=== PATIENT | male | born 1950 | race Caucasian/White ===

== ENCOUNTER 2018-03-16 09:20 | Emergency (ER) | payer MEDICARE, OTHER ==
[2018-03-16 09:31] VITALS: BP 138/48
[2018-03-16] MEDS ORDERED: ERYTHROMYCIN OPHTH OINT 1 GM TUBE RIGHTEYE STA (10:57)
--- NOTE | 2018-03-16 10:59 | ED Physician Documentation ---
History of Present Illness - Stated complaint Stated Complaint: LUMP IN CORNER RT EYE - Chief complaint Chief Complaint: Heent - Additonal information Additional information: hx from pt 67 male painful lump medial corner R eye for a motnh or so [facility] duct and rec warm compresses which helped at first not now he was at the hospital with his anyway so he thought he would get another opinion no fever no dc Review of Systems Eyes: reports: Irritation. denies: Discharge PD PAST MEDICAL HISTORY - Past Medical History Past Medical History: Yes Cardiovascular: Hypertension Endocrine/Autoimmune: Type 2 diabetes Musculoskeletal: Other Other Past Medical History: restless leg syndrome - Past Surgical History Past Surgical History: No - Present Medications Home Medications: Ambulatory Orders Medication Instructions Recorded Confirmed Carbidopa/Levodopa 1 each PO 03/16/18 [Carbidopa-Levodopa 10-100 Tab] Glipizide [Glipizide Xl] 10 mg PO 03/16/18 Lisinopril/Hydrochlorothiazide 1 each PO 03/16/18 [Lisinopril-Hctz 10-12.5 mg Tab] Meloxicam 15 mg PO 03/16/18 03/16/18 Metoprolol Succinate [Toprol Xl] 50 mg PO 03/16/18 Polymyxin B/Trimeth Ophth Drop 1 drops OPTH Q6H 7 Days #1 bottle 03/16/18 [Polytrim Ophth Drops] metFORMIN [Glucophage] 500 mg PO ONCE 03/16/18 03/16/18 - Allergies Allergies/Adverse Reactions: Allergies Allergy/AdvReac Type Severity Reaction Status Date / Time erythromycin base Allergy Rash Verified 03/16/18 09:31 - Social History Does the pt smoke?: No Smoking Status: Never smoker PD ED PE NORMAL - Vitals Vital signs reviewed: Yes - HEENT HEENT: PERRL, EOMI, Other (small firm approx 2 mm swelling medial to R eye, no dc no injection no erythema) Results - Vitals Vitals: Vital Signs - 24 hr 03/16/18 09:28 Temperature 36.0 C L Heart Rate 68 Respiratory 16 Rate Blood Pressure 138/48 H O2 Saturation 96 Oxygen O2 Source Room air PD MEDICAL DECISION MAKING - ED course ED course: seems Departure - Departure Disposition: 01 Home, Self Care Clinical Impression: Blocked tear duct Condition: Good Instructions: ED Blocked Duct Tear Prescriptions: Polymyxin B/Trimeth Ophth Drop [Polytrim Ophth Drops] 1 drops OPTH Q6H 7 Days #1 bottle Comments: If not better in a week follow up with your eye doctor
== END 2018-03-16 11:08 | disposition home or self-care (01) ==
LOC: ED 09:20
DX: H04.001 Unspecified dacryoadenitis, right lacrimal gland (principal); I10 Essential (primary) hypertension; E11.9 Type 2 diabetes mellitus without complications
CPT/HCPCS: 99283

== ENCOUNTER 2021-04-04 13:25 | Emergency (ER) | payer MEDICARE, OTHER ==
[2021-04-04 13:43] VITALS: BP 89/49
[2021-04-04] MEDS ORDERED: MELOXICAM 7.5 MG TABLET PO STA (14:08)
--- NOTE | 2021-04-04 14:18 | ED Physician Documentation ---
PD HPI LOWER EXT INJURY - Stated complaint Stated Complaint: LT ANKLE PX - Chief complaint Chief Complaint: Ext Problem - History obtained from History obtained from: Patient - History of Present Illness PD HPI LOW EXT INJURY LOCATION: Left, Ankle Type of injury: Twist Where injury occurred: Work Timing - onset: How many weeks ago (1) Timing - duration: Weeks (1) Pain level max: 7 Pain level now: 5 Improved by: Rest, Ice Worsened by: Moving, Palpating Associated symptoms: Swelling. No: Weakness, Numbness, Tingling Contributing factors: No: Anticoagulated - Additional information Additional information: 70-year-old male states that he twisted his left foot and ankle at work about 1 week ago. Is having continued pain, swelling and bruising. Worse with walking, better with rest. He states that he was seen [facility] few days ago but does not have the results back of the x-rays. He states that he called the nurse advice line and was told to come here for evaluation. Review of Systems Constitutional: denies: Fever Throat: denies: Sore throat Cardiac: denies: Chest pain / pressure Respiratory: denies: Cough GI: denies: Vomiting, Diarrhea Skin: denies: Rash Musculoskeletal: denies: Neck pain, Back pain Neurologic: denies: Headache PD PAST MEDICAL HISTORY - Past Medical History Past Medical History: Yes Cardiovascular: Hypertension Endocrine/Autoimmune: Type 2 diabetes Musculoskeletal: Other - Past Surgical History Past Surgical History: No - Present Medications Home Medications: Ambulatory Orders Medication Instructions Recorded Confirmed Carbidopa/Levodopa 1 each PO 03/16/18 [Carbidopa-Levodopa 10-100 Tab] Glipizide [Glipizide Xl] 10 mg PO 03/16/18 Lisinopril/Hydrochlorothiazide 1 each PO 03/16/18 [Lisinopril-Hctz 10-12.5 mg Tab] Meloxicam 15 mg PO 03/16/18 03/16/18 Metoprolol Succinate [Toprol Xl] 50 mg PO 03/16/18 Polymyxin B/Trimeth Ophth Drop 1 drops OPTH Q6H 7 Days #1 bottle 03/16/18 [Polytrim Ophth Drops] metFORMIN [Glucophage] 500 mg PO ONCE 03/16/18 03/16/18 - Allergies Allergies/Adverse Reactions: Allergies Allergy/AdvReac Type Severity Reaction Status Date / Time erythromycin base Allergy Rash Verified 04/04/21 13:42 - Social History Does the pt smoke?: No Smoking Status: Never smoker PD ED PE NORMAL - Vitals Vital signs reviewed: Yes - General General: Alert and oriented X 3, No acute distress - HEENT HEENT: Moist mucous membranes - Neck Neck: Supple, no meningeal sign - Cardiac Cardiac: RRR - Respiratory Respiratory: No respiratory distress, Clear bilaterally - Derm Derm: Warm and dry - Extremities Extremities: Other (L ankle - mild ecchymosis to the medial aspect of the foot, under the medial malleolus. NVI. Otherwise normal examination of the foot and ankle. Achilles tendon intact.) - Neuro Neuro: Alert and oriented X 3 - Psych Psych: Normal mood, Normal affect Results - Vitals Vitals: Vital Signs - 24 hr 04/04/21 13:36 Temperature 36.6 C Heart Rate 87 Respiratory 16 Rate Blood Pressure 89/49 L O2 Saturation 96 Oxygen O2 Source Room air - Rads (name of study) L ankle xray Radiology: Final report received, EMP read contemporaneously, See rad report L foot xray Radiology: Final report received, EMP read contemporaneously, See rad report PD MEDICAL DECISION MAKING - ED course Complexity details: reviewed results, considered differential, d/w patient ED course: 70-year-old male with what appears to be a left ankle sprain. No acute findings on x-ray. Patient does state that his blood pressure runs low. Patient is well-appearing, nontoxic. We we'll place in a air splint for comfort. He has his own crutches. He states he has meloxicam at home and will start to take this. Patient counseled regarding signs and symptoms for which I believe and urgent re-evaluation would be necessary. Patient with good understanding of and agreement to plan and is comfortable going home at this time This document was made in part using voice recognition software. While efforts are made to proofread this document, sound alike and grammatical errors may occur. Departure - Departure Disposition: 01 Home, Self Care Clinical Impression: Left ankle sprain Qualifiers: Encounter type: initial encounter Involved ligament of ankle: unspecified ligament Qualified Code(s): S93.402A - Sprain of unspecified ligament of left ankle, initial encounter Condition: Good Instructions: ED Sprain Ankle Follow-Up: ADITI FRANKS ARNP [Primary Care Provider] - [facility] [Provider Group] Comments: I would continue the meloxicam and Tylenol at home. You can follow-up with your doctor and/or orthopedics within 1 week for repeat evaluation. You may bear weight as tolerated. The brace should help to stabilize the ankle as well. Return if you worsen. Your x-rays did not show any acute abnormalities today.
--- NOTE | 2021-04-04 14:48 | XRAY Report ---
PROCEDURE: Foot 3 View LT INDICATIONS: fall 1 week ago, foot/ankle pain TECHNIQUE: 3 views of the foot were acquired. COMPARISON: Correlation is made with the accompanying ankle plain films. FINDINGS: Bones: No fractures or dislocations. No suspicious bony lesions. Age-appropriate degenerative may ges are seen. Toe alignment abnormalities can be seen. A relatively prominent Achilles tendon inser tion enthesophyte can be seen along the posterior aspect of the calcaneus. Soft tissues: No significant soft tissue abnormality is seen. IMPRESSION: No displaced fractures are seen. Toe alignment abnormalities and degenerative changes can be seen. Reviewed by: Boaz Blanchard MD on 04/04/2021 1:46 PM [facility] Approved by: Boaz Blanchard MD on 04/04/2021 1:46 PM [facility] Station ID: [id number]
--- NOTE | 2021-04-04 14:48 | XRAY Report ---
PROCEDURE: Ankle 3 View LT INDICATIONS: fall 1 week ago, foot/ankle pain TECHNIQUE: 3 views of the ankle were acquired. COMPARISON: Correlation is made with the accompanying foot plain films, 04/04/2021 FINDINGS: Bones: No fractures or dislocations. Ankle mortise is normally aligned. No suspicious bony lesions . The talar dome demonstrates an unremarkable appearance. A relatively prominent Achilles insertio n enthesophyte can be seen. Toe alignment abnormalities are seen. Soft tissues: No significant soft tissue plain film abnormality is seen. IMPRESSION: No acute plain film abnormality can be seen. Reviewed by: Boaz Blanchard MD on 04/04/2021 1:47 PM [facility] Approved by: Boaz Blanchard MD on 04/04/2021 1:47 PM [facility] Station ID: [id number]
== END 2021-04-04 15:26 | disposition home or self-care (01) ==
LOC: ED 13:25
DX: S93.402A Sprain of unspecified ligament of left ankle, initial encounter (principal); X50.1XXA Overexertion from prolonged static or awkward postures, initial encounter; Y99.0 Civilian activity done for income or pay; I10 Essential (primary) hypertension; E11.9 Type 2 diabetes mellitus without complications; Z79.84 Long term (current) use of oral hypoglycemic drugs
CPT/HCPCS: 73610; 73630; 99282; 99283; A9270

== ENCOUNTER 2021-04-06 08:35 | Outpatient (CLI) | payer MEDICARE, OTHER ==
--- NOTE | 2021-04-06 12:51 | XRAY Report ---
PROCEDURE: Ankle 3 View LT INDICATIONS: LEFT ANKLE PX TECHNIQUE: 3 views of the ankle were acquired. COMPARISON: 04/04/2021 FINDINGS: Bones: No acute fractures or dislocations. No reactive changes of subacute fracture healing. Stable chronic appearing ossification over the medial margin of the distal fibula. Prominent retrocalcaneal enthesophyte, unchanged. Ankle mortise is normally aligned. No suspicious bony lesions. Soft tissues: No tibiotalar joint effusion. Achilles tendon appears normal. IMPRESSION: Stable radiographic evaluation of the left ankle. No evidence for acute or subacute frac tures. Normal alignment. If there is continued clinical concern for pathology or occult fracture, consider follow-up imaging w ith repeat radiographs in 10-14 days and possible advanced imaging (CT, MRI, bone scan) if symptoms p ersist. Reviewed by: Roshan Simmons MD on 04/06/2021 12:50 PM PST Approved by: Roshan Simmons MD on 04/06/2021 12:50 PM PST Station ID: [id number]
--- NOTE | 2021-04-06 13:16 | XRAY Report ---
PROCEDURE: Foot 3 View LT INDICATIONS: LEFT FOOT PAIN TECHNIQUE: 3 views of the foot were acquired. COMPARISON: 04/04/2021. FINDINGS: Bones: No fractures or dislocations. No suspicious bony lesions. Large dorsal calcaneal bone spur i s stable.: Limited deformities are unchanged. Soft tissues: No tibiotalar joint effusion. Achilles tendon appears normal. IMPRESSION: No acute osseous lesion. If there persistent symptoms or continued clinical concern for pathology, th en advanced imaging (CT, MR, bone scan) should be considered for further evaluation. Reviewed by: Jacqueline Marroquin MD, PhD on 04/06/2021 1:15 PM PST Approved by: Jacqueline Marroquin MD, PhD on 04/06/2021 1:15 PM PST Station ID: [id number]
== END 2021-04-06 08:36 | disposition home or self-care (01) ==
LOC: DI.WOS 08:35
PROVIDERS: ATTEND Orthopaedic Surgery
DX: M25.572 Pain in left ankle and joints of left foot (principal); M79.672 Pain in left foot